=== PATIENT | male | born 1955 | race Two or more races ===

== ENCOUNTER 2017-05-05 15:07 | Emergency (ER) | payer SELFPAY ==
[~2017-05-05] VITALS: Ht 167.6 cm; Wt 66.7 kg
[2017-05-05 15:28] VITALS: BP 135/88
== END 2017-05-05 15:40 | disposition home or self-care (01) ==
LOC: ER 15:07
DX: E03.9 Hypothyroidism, unspecified (principal); Z76.0 Encounter for issue of repeat prescription

== ENCOUNTER 2017-07-01 14:47 | Emergency (ER) | payer MEDICAID, OTHER ==
[~2017-07-01] VITALS: Ht 167.6 cm; Wt 61.7 kg
[2017-07-01 15:15] VITALS: BP 117/73
== END 2017-07-01 16:49 | disposition home or self-care (01) ==
LOC: ER 14:47
DX: E03.9 Hypothyroidism, unspecified (principal); Z76.0 Encounter for issue of repeat prescription

== ENCOUNTER 2017-12-09 15:45 | Emergency (ER) | payer MEDICAID, OTHER ==
[~2017-12-09] VITALS: Ht 167.6 cm; Wt 66.2 kg
[2017-12-09 16:06] VITALS: BP 114/80
[2017-12-09] MEDS ORDERED: KETOROLAC TROMETH 60MG/2ML VIAL IM ONE (16:45)
== END 2017-12-09 18:32 | disposition home or self-care (01) ==
LOC: ER 15:45
DX: M54.5 Low back pain (principal); F17.210 Nicotine dependence, cigarettes, uncomplicated
CPT/HCPCS: 72131; 96372; 99284; J1885; 93005